=== PATIENT | female | born 2000 | race Caucasian/White ===

== ENCOUNTER 2024-07-12 22:46 | Emergency (ER) | payer SELFPAY ==
[2024-07-12 22:52] VITALS: BP 151/132
[2024-07-12 22:58] VITALS: BP 151/132
[2024-07-12 23:00] VITALS: BMI 20.4
[2024-07-13 00:04] LABS: Amphetamines Negative (Negative); Barbiturates Negative (Negative); Benzodiazepines Negative (Negative); Buprenorphine Negative (Negative); Cocaine Negative (Negative); Marijuana Positive (Negative); Methadone Negative (Negative); Methamphetamines Negative (Negative); Opiates Negative (Negative); Phencyclidine Negative (Negative); Tricyclic Antidepressants Negative (Negative)
--- NOTE | 2024-07-13 01:30 | ED.GENMED ---
History of Present Illness
General
Chief Complaint: Substance Abuse
Source: patient, family and ambulance crew
Exam Limitations: clinical condition (Intoxicated)
Time Seen by Provider: 07/12/24 22:50
History of Present Illness
History of Present Illness:
23-year-old female who presents intoxicated. Patient was found to [place] and [place] in the bathroom passed out. EMS arrived and initially mom wanted to bring her to the hospital herself. However while driving the patient tried to get
out of the car. Patient arrives intoxicated and yelling. Mom states she has been drinking vodka and for last several weeks has probably been drinking a little bit heavily. She recently broke up with a boyfriend of 6 years a few months ago. Mom
does states she was recently in [facility] but did not seem to help. She states she did try to get her to get help
Past History
Past History
ED Past Medical History: None
Social History
Alcohol: Binge drinker
Phy Exam
Physical Exam
Physical Exam:
CONSTITUTIONAL Vital signs reviewed, Patient alert and oriented to person. Appears intoxicated
HEAD atraumatic, normocephalic.
EYES eyelids normal to inspection, Extraocular muscles intact, Conjunctiva normal, Sclera normal.
NECK normal range of motion, Trachea midline, no jugular venous distention.
RESP no respiratory distress
BACK No obvious deformities
UPPER EXTREMITY Gross Range of motion normal, gross motor strength normal
LOWER EXTREMITY Gross range of motion normal, Gross motor strength normal
NEURO Speech somewhat slurred, No focal motor deficits include,Cranial Nerves intact to screening exam.
SKIN Skin warm, dry, and normal in color.
Course
Orders/Labs/Results
Orders:
Orders
07/12/24 23:45
Urine Drug Abuse Screen Urgent
Date Specimen was Collected: 07/12/24
Time Specimen was Collected: 23:39
07/13/24 01:32
Vital Signs- Treatment ONCE
Frequency: Once
Abnormal Lab Results
07/12/24
23:45
U Marijuana (THC) Screen Positive H
(Negative)
Vital Signs
Initial and Last Documented VS:
Initial Vital Signs
Pulse BP Pulse Ox
123 151/132 98
07/12/24 22:52 07/12/24 22:52 07/12/24 22:52
Last Documented Vital Signs
Pulse Resp BP Pulse Ox
119 20 143/76 98
07/13/24 01:38 07/13/24 01:38 07/13/24 01:38 07/13/24 01:38
MDM/Problems Addressed
MDM/Problems Addressed:
Acute alcohol intoxication, major depression
*Pulse Oximetry
Patient hypoxic: no
*Critical Care Note
Total Time (30-74mins, 75-104mins- exclusive of procedures): Not Applicable
Data Reviewed
Source: patient and family
Further Testing Considered But Not Given:
Consider labs with patient appears just intoxicated medically stable otherwise
Patient Management
Escalation/DeEscalation of care consider admission/obs:
Outbursts at times. Mom at bedside and mom and patient began to fight. Mom would like her to get help and patient was seen by [facility] however the patient refuses further inpatient care. Mom was given resources by [facility]. Patient has a nonfocal
neurologic assessment and is more sober on reassessment. Mom does have concerns she will try to jump out the car again. Brother is now here as well who will sit with her in a car.
Update Note
Update Note:
Mom notes that the patient will not seek further care. Unfortunately she is not amenable to 302 and is awake and alert. Mom and patient and patient's brother left prior to my final reassessment. Patient was witnessed walking with her purse over
her shoulder in a normal fashion with a normal gait.
ED Attending Note
-
Portions of this chart may have been created with voice recognition software.� Occasional wrong word or��sound alike� substitutions may have occurred due to the inherent limitations of voice recognition software.
Discharge Plan
Departure
Patient Disposition: Home (Routine Discharge)
Date of Disposition: 07/13/24
Time of Disposition: 01:35
Patient with high blood pressure during this ER visit?: Yes
Discharge Problem:
Acute alcohol intoxication
Instructions: Alcohol intoxication - ED discharge instructions
Referrals:
UNKNOWN - PT DOES,NOT KNOW [Family Provider] -
Activity Restrictions/Additional Instructions:
Please stop drinking alcohol. Please seek outpatient help as given to you here in the emergency department. Return immediately for intractable vomiting, fevers, weakness of any kind, or any other concerns.
Interventions
Interventions:
*Risk Screen - Suicide Last Done: 07/13/24 00:30
*General Assessment Last Done: 07/12/24 23:03
*Neglect/Abuse Screening Last Done: 07/13/24 00:30
ED- Fall Risk Assessment Last Done: 07/13/24 00:30
*ED COVID-19 Vaccine History Last Done: 07/12/24 23:03
ED-Psychological Assessment Last Done: 07/12/24 23:05
Discharge Date and Time
Print Language: OCCITAN
[2024-07-13 01:38] VITALS: BP 143/76
== END 2024-07-13 01:45 | disposition home or self-care (01) ==
LOC: EMR 22:46
PROVIDERS: EMERGENCY PHYSICIAN Emergency Medicine
DX: F10.129 Alcohol abuse with intoxication, unspecified (principal); F32.9 Major depressive disorder, single episode, unspecified
CPT/HCPCS: 99282; 80306